=== PATIENT | female | born 1980 | race Caucasian/White ===

== ENCOUNTER 2023-04-11 14:10 | Outpatient (OUT) | payer OTHER, SELFPAY ==
[2023-04-11 14:50] LABS: Bilirubin Urine NEGATIVE (NEGATIVE); Blood Urine TRACE-L (NEGATIVE); Clarity Urine CLEAR (CLEAR); Color Urine LT. YELLOW (YELLOW); Glucose Urine UA NEGATIVE (NEGATIVE); Ketones Urine NEGATIVE (NEGATIVE); Leukocyte Esterase Urine NEGATIVE (NEGATIVE); Nitrite Urine NEGATIVE (NEGATIVE); Protein Urine 100 mg/dL (NEG/TRACE); Urobilinogen Urine 0.2 EU/dL (0.2-1.0)
[2023-04-11 14:52] LABS: Basophils Absolute Auto 0.1 10^3/uL (0.0-0.1); Basophils Percent Auto 0.5 % (0.2-2.0); Eosinophils Absolute Auto 0.2 10^3/uL (0.0-0.7); Eosinophils Percent Auto 1.6 % (0.9-7.0); Hemoglobin 11.7 g/dL (12.0-16.0); Immature Granulocytes Abs Auto 0.06 10^3/uL (0.00-0.03); Immature Granulocytes Pct Auto 0.6 % (0.0-0.5); Lymphocytes Absolute Auto 2.7 10^3/uL (1.2-3.8); Lymphocytes Percent Auto 26.8 % (20.5-60.0); Mean Corpuscular HGB Conc 32.5 g/dL (29.9-35.2); Mean Corpuscular Volume 92.3 fL (81.0-99.0); Mean Platelet Volume 9.2 fL (9.5-13.5); Monocytes Absolute Auto 0.5 10^3/uL (0.3-0.8); Monocytes Percent Auto 5.3 % (1.7-12.0); Neutrophils Absolute Auto 6.7 10^3/uL (1.4-6.5); Neutrophils Percent Auto 65.2 % (43.0-75.0); Platelet Count 339 10^3/uL (150-450); White Blood Count 10.2 10^3/uL (4.0-11.0)
[2023-04-11 15:09] LABS: Creatinine Urine Random 56.77 mg/dL (20.00-300.00); Protein Creatinine Ratio Urine 2.17; Total Protein Urine Random 123.1 mg/dL (<=11.9)
[2023-04-11 16:09] LABS: BUN Creatinine Ratio 25.8; Calcium 9.2 mg/dL (8.5-10.1); Carbon Dioxide 23.7 mmol/L (21.0-32.0); Chloride 101 mmol/L (98-107); Estimated GFR (African America >60 (>=60); Estimated GFR (Non-African Ame >60 (>=60); Glucose 106 mg/dL (74-106); Magnesium 1.6 mg/dL (1.8-2.4); Phosphorus 5.2 mg/dL (2.6-4.7); Potassium 3.7 mmol/L (3.5-5.1); Sodium 135 mmol/L (136-145)
[2023-04-12 14:08] LABS: PTH, Intact 17 pg/mL (15-65)
== END 2023-04-11 14:11 | disposition home or self-care (01) ==
LOC: LAB 14:10
PROVIDERS: Visit Provider Internal Medicine Nephrology
DX: N18.2 Chronic kidney disease, stage 2 (mild) (principal)
CPT/HCPCS: 36415; 80048; 81003; 82306; 82570; 83735; 83970; 84100; 84156; 85025

== ENCOUNTER 2023-04-12 16:02 | Outpatient (REF) | payer OTHER, SELFPAY ==
[2023-04-12 17:43] LABS: Total Protein Urine Random 57.6 mg/dL (<=11.9)
[2023-04-13 12:13] LABS: Total Volume 24 Hour Urine 3000 mL/24hr
== END 2023-04-12 16:03 | disposition home or self-care (01) ==
LOC: LAB 16:02
PROVIDERS: Visit Provider Internal Medicine Nephrology
DX: N18.2 Chronic kidney disease, stage 2 (mild) (principal)
CPT/HCPCS: 84156

== ENCOUNTER 2023-06-17 12:15 | Emergency (ER) | payer OTHER, SELFPAY ==
[2023-06-17] VITALS (22 sets, daily range): BP systolic 141–149; BP diastolic 89–98; PULSE 67–98; RESP 10–19; TEMP 36.6; O2SAT 94–100; BMI 26.5
--- NOTE | 2023-06-17 12:48 | ED.GENADUL1 ---
HPI - General Adult General Chief complaint: Chest Pain Stated complaint: CHEST PAIN Time Seen by Provider: 06/17/23 12:41 Source: patient Mode of arrival: walk-in Limitations: no limitations History of Present Illness HPI narrative: this patient's here for a sharp stabbing pain underneath the left lateral breast area. She's not been sick recently. She said the pain is made worse when she takes a deep breath or when she moves her upper shoulder girdle. She had a breast biopsy several years ago and has metal clips in her chest. She also has fibromyalgia. She does not have any other joint pain or musculoskeletal symptoms. She does not have influenza type symptoms such as aches and pains myalgias or arthralgias fever sore throat cough or congestion. She is a nonsmoker. She's not had sputum production. She has no history of pneumothorax or underlying pulmonary disease. She's not had any cardiac problems. Has no risk factors for cardiovascular disease. She does however take metformin and levothyroxine. Related Data Home Medications Medication Instructions Recorded Confirmed levothyroxine 75 mcg tablet 75 mcg PO DAILY 06/17/23 06/17/23 metformin 500 mg tablet,extended 500 mg PO DAILY 06/17/23 06/17/23 release 24 hr sertraline 50 mg tablet 50 mg PO DAILY 06/17/23 06/17/23 Allergies Allergy/AdvReac Type Severity Reaction Status Date / Time No Known Drug Allergies Allergy Verified 06/17/23 12:18 [facility] Social History Smoking status: Former smoker Exam Narrative Exam Narrative: awake alert no apparent distress vital signs show slight elevation of her blood pressure. Her pulse ox is normal her temperature is normal her respiratory rate is normal. Constitutional she's mildly apprehensive but her skin is warm and dry mucous membranes moist and pink there is no evidence of pallor or anemia. Chest shows there to be no subcutaneous emphysema chest wall is unremarkable in appearance. She has excellent breath sounds with no wheezes rales or rhonchi. There is no pericardial rub or click. Pain can be reproduced by stretching the upper torso and her shoulder manipulation. Heart sounds are normal no gallop rub or murmur. Legs and extremities show a deep vein thrombosis phlebitis edema or swelling. She has no abdominal discomfort. Constitutional Vital Signs, click to edit/add: Last Vital Signs Temp 97.8 F 06/17/23 12:19 Pulse 67 11/27/23 13:10 Resp 11 L 06/17/23 13:10 BP 141/98 H 06/17/23 12:22 Pulse Ox 96 06/17/23 13:10 O2 Del Method Room Air 06/17/23 12:29 Course Vital Signs Vital signs: Vital Signs Temperature 97.8 F 06/17/23 12:19 Pulse Rate 95 H 06/17/23 12:19 Respiratory Rate 18 06/17/23 12:19 Blood Pressure 141/98 H 06/17/23 12:19 Pulse Oximetry 100 06/17/23 12:19 Oxygen Delivery Method Room Air 06/17/23 12:19 Temperature 97.8 F 06/17/23 12:19 Pulse Rate 67 06/17/23 13:10 Respiratory Rate 11 L 06/17/23 13:10 Blood Pressure 141/98 H 06/17/23 12:22 Pulse Oximetry 96 06/17/23 13:10 Oxygen Delivery Method Room Air 06/17/23 12:29 Medical Decision Making MDM Narrative Medical decision making narrative: this patient's routine chest x-ray and lab were essentially normal with the exception of elevation of her d-dimer. Although she is at low risk for a CTA was done to rule out the possibility. It was reviewed by the radiologist and is negative. In synopsis this patient presents with sharp pain aching be reproduced with palpation over certain areas of her back and paralumbar area. Her CTA is negative Lab Data Labs: Lab Results 06/17/23 Range/Units 12:25 WBC 14.5 H (4.0-11.0) 10^3/uL RBC 4.00 L (4.20-5.40) 10^6/uL Hgb 11.9 L (12.0-16.0) g/dL Hct 36.5 (36.0-48.0) % MCV 91.3 (81.0-99.0) fL MCH 29.8 (26.7-34.0) pg MCHC 32.6 (29.9-35.2) g/dL RDW 12.0 (11.0-15.0) % Plt Count 328 (150-450) 10^3/uL MPV 9.4 L (9.5-13.5) fL Neut % (Auto) 68.4 (43.0-75.0) % Lymph % (Auto) 24.0 (20.5-60.0) % [place] % (Auto) 5.4 (1.7-12.0) % Eos % (Auto) 1.5 (0.9-7.0) % Baso % (Auto) 0.4 (0.2-2.0) % Neut # (Auto) 9.9 H (1.4-6.5) 10^3/uL Lymph # (Auto) 3.5 (1.2-3.8) 10^3/uL [place] # (Auto) 0.8 (0.3-0.8) 10^3/uL Eos # (Auto) 0.2 (0.0-0.7) 10^3/uL Baso # (Auto) 0.1 (0.0-0.1) 10^3/uL Abs Immat Gran (auto) 0.05 H (0.00-0.03) 10^3/uL Imm/Tot Granulo (auto) 0.3 (0.0-0.5) % D-Dimer 1.31 H* (<=0.59) mg/L FEU Sodium 135 L (136-145) mmol/L Potassium 4.1 (3.5-5.1) mmol/L Chloride 100 (98-107) mmol/L Carbon Dioxide 25.4 (21.0-32.0) mmol/L Anion Gap 13.7 BUN 26.0 H (7.0-18.0) mg/dL Creatinine 1.12 H (0.55-1.02) mg/dL Est GFR ( Amer) >60 (>=60) Est GFR (Non-Af Amer) 54 L (>=60) BUN/Creatinine Ratio 23.2 Glucose 95 (74-106) mg/dL Calcium 9.0 (8.5-10.1) mg/dL Troponin I High Sens 5.9 (4.0-51.3) pg/mL Discharge Plan Discharge Chief Complaint: Chest Pain Clinical Impression: Chest pain Patient Disposition: Home, Self-Care Time of Disposition Decision: 14:46 Prescriptions / Home Meds: No Action levothyroxine 75 mcg tablet 75 mcg PO DAILY metformin 500 mg tablet extended release 24 hr 500 mg PO DAILY sertraline 50 mg tablet 50 mg PO DAILY Stand Alone Forms: Portal Instructions Referrals: Physician,Non-Staff, MD [Primary Care Provider] - 1 week
--- NOTE | 2023-06-17 12:50 | ECG_ITS ---
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
--- NOTE | 2023-06-17 12:50 | XR_ITS ---
The [address] [address] Patient Name: NILO JUDD MRN: [id number] date: 1980 Sex: F Assigned Patient Location: ER Current Patient Location: ER Accession/Order Number: [id number] Exam Date: 06/17/2023 12:55 Report Date: 06/17/2023 13:21 At the request of: GRETTA BLANTON Procedure: XR chest 1V EXAMINATION: XR chest 1V HISTORY: CHEST PAIN , shortness of breath COMPARISON: No relevant comparison available. FINDINGS: LUNGS: No significant pulmonary parenchymal abnormalities. VASCULATURE: No increased pulmonary vasculature. PLEURA: No pneumothorax, effusion, or pleural thickening. CARDIAC: No cardiomegaly or cardiac silhouette abnormality. MEDIASTINUM: No visible mass or adenopathy. BONES: No fracture or visible bone lesion. OTHER: Negative. XR/XR chest 1V IMPRESSION: 1. No acute cardiopulmonary process. Electronically authenticated by: PHOEBE LANIER Date: 06/17/2023 13:21
[2023-06-17 13:01] LABS: Basophils Absolute Auto 0.1 10^3/uL (0.0-0.1); Basophils Percent Auto 0.4 % (0.2-2.0); Eosinophils Absolute Auto 0.2 10^3/uL (0.0-0.7); Eosinophils Percent Auto 1.5 % (0.9-7.0); Hematocrit 36.5 % (36.0-48.0); Hemoglobin 11.9 g/dL (12.0-16.0); Immature Granulocytes Abs Auto 0.05 10^3/uL (0.00-0.03); Immature Granulocytes Pct Auto 0.3 % (0.0-0.5); Lymphocytes Absolute Auto 3.5 10^3/uL (1.2-3.8); Mean Corpuscular HGB Conc 32.6 g/dL (29.9-35.2); Mean Corpuscular Hemoglobin 29.8 pg (26.7-34.0); Mean Corpuscular Volume 91.3 fL (81.0-99.0); Mean Platelet Volume 9.4 fL (9.5-13.5); Monocytes Absolute Auto 0.8 10^3/uL (0.3-0.8); Monocytes Percent Auto 5.4 % (1.7-12.0); Neutrophils Absolute Auto 9.9 10^3/uL (1.4-6.5); Neutrophils Percent Auto 68.4 % (43.0-75.0); Platelet Count 328 10^3/uL (150-450); White Blood Count 14.5 10^3/uL (4.0-11.0)
[2023-06-17 13:11] LABS: Anion Gap 13.7; BUN Creatinine Ratio 23.2; Carbon Dioxide 25.4 mmol/L (21.0-32.0); Chloride 100 mmol/L (98-107); Estimated GFR (African America >60 (>=60); Estimated GFR (Non-African Ame 54 (>=60); Glucose 95 mg/dL (74-106); Potassium 4.1 mmol/L (3.5-5.1); Sodium 135 mmol/L (136-145); Troponin I High Sensitivity 5.9 pg/mL (4.0-51.3)
[2023-06-17 13:15] LABS: D Dimer 1.31 mg/L FEU (<=0.59)
--- NOTE | 2023-06-17 13:17 | CT_ITS ---
[address] [address] Patient Name: NILO JUDD MRN: [id number] date: 1980 Sex: F Assigned Patient Location: ER Current Patient Location: ER Accession/Order Number: [id number] Exam Date: 06/17/2023 13:43 Report Date: 06/17/2023 14:35 At the request of: GRETTA BLANTON Procedure: CT angio chest EXAM: CT angio chest HISTORY: rule out PE shortness of breath. COMPARISON: None. TECHNIQUE: Following the intravenous administration of 90 cc of Omnipaque 350, axial soft tissue and lung windows of the chest were performed with coronal and sagittal reformats. 3-D MIPS reconstructions were created and reviewed. Findings: The heart is mildly enlarged. No pericardial effusion. The thoracic aorta is normal caliber. There is adequate opacification of the pulmonary arteries. No evidence of pulmonary embolism. The central airways are patent. No pneumothorax. No pleural effusion. No focal consolidation. Hypoventilatory changes with mild bilateral lower lung atelectasis. No enlarged mediastinal, hilar, axillary or supraclavicular lymph nodes. Fatty infiltration of the liver. Probable partially visualized severe left-sided hydronephrosis. No aggressive sclerotic or lytic osseous lesions. Mild multilevel degenerative spondylosis. CT/CT angio chest IMPRESSION: 1. No pulmonary embolism. 2. Hypoventilatory changes. 3. Fatty infiltration of the liver. Electronically authenticated by: DIVINE SANCHEZ Date: 06/17/2023 14:35
== END 2023-06-17 15:14 | disposition home or self-care (01) ==
PROVIDERS: Emergency Provider Emergency Medicine Emergency Medical Services
DX: R07.9 Chest pain, unspecified (principal); M79.7 Fibromyalgia; Z79.899 Other long term (current) drug therapy; Z79.84 Long term (current) use of oral hypoglycemic drugs; Z79.890 Hormone replacement therapy; Z87.891 Personal history of nicotine dependence
CPT/HCPCS: 36415; 71045; 71275; 80048; 84484; 85025; 85378; 93005; 99285; Q9967